=== PATIENT | female | born 1995 | race African-American/Black ===

== ENCOUNTER 2019-04-03 14:49 | Inpatient (IN) ==
[2019-04-03] MEDS ORDERED: miSOPROStoL 200 MCG TABLET VAG PRN (15:20)
[2019-04-03] MEDS ORDERED: BUTORPHANOL 2 MG/ML VIAL IV PRN (15:20)
[2019-04-03] MEDS ORDERED: LIDOCAINE 1% 50 ML VIAL MISC INJ ONE (15:20)
[2019-04-03] MEDS ORDERED: MEPERIDINE 50 MG/1 ML VIAL IV PRN (15:20)
[2019-04-03] MEDS ORDERED: ONDANSETRON 4 MG/2 ML VIAL IV PRN (15:20)
[2019-04-03] MEDS ORDERED: DINOPROSTONE VAG GEL 10 MG SYRINGE VAG ONE (15:26)
[2019-04-03] MEDS: LACTATED RINGERS 1,000 ML IV SCH (15:50)
[2019-04-03 16:03] LABS: Basophils % 0.2 % (0.0-0.8); Eosinophils % 0.3 % (0.00-10.9); Hematocrit 26.9 VOL% (35.7-47.0); Immature Granulocytes Absolute 0.09 #; Lymphocytes # 1.3 10*3/uL (1.4-4.0); Lymphocytes % 14.3 % (21.3-54.2); Mean Corpuscular HGB Conc 29.7 GM/DL (32-36); Mean Corpuscular Volume 72.9 FL (87-102); Mean Platelet Volume 11.5 FL (9.6-12.0); Monocytes % 10.5 % (1.7-12.7); NRBC # 0.03 10*3/uL; Neutrophils % 73.7 % (38.7-73.9); Platelet Count 251 T/CUMM (130-400); Red Blood Count 3.69 MC/CUMM (3.8-5.5); Red Cell Distribution Width 16.4 % (9.3-17.3)
[2019-04-03 16:25] LABS: Alanine Aminotransferase < 9 U/L (13-56); Albumin 2.9 G/DL (3.4-5.0); Alkaline Phosphatase 161 U/L (45-117); Aspartate Amino Transferase 17 U/L (0-37); Blood Urea Nitrogen 5 MG/DL (7-18); Calcium 8.4 MG/DL (8.5-10.1); Estimated Glom Filtration Rate 124 ML/MIN; Glucose 81 MG/DL (74-106); Osmolality,Calculated 270.7 MOS/KG (273-304); Total Protein 7.4 G/DL (6.4-8.3)
[2019-04-04] MEDS ORDERED: OXYTOCIN/LR 20 UNIT/1,000 ML BAG IV SCH (02:00)
[2019-04-04] MEDS: LACTATED RINGERS 1,000 ML IV SCH (02:14)
[2019-04-04] MEDS ORDERED: ePHEDrine 50 MG/ML AMP IV PRN (06:12)
[2019-04-04] MEDS ORDERED: NALOXONE 0.4 MG/ML VIAL IV PRN (06:12)
[2019-04-04] MEDS ORDERED: CITRIC ACID/SODIUM CITRATE 30 ML UDCUP PO ONE (06:12)
[2019-04-04] MEDS ORDERED: FAMOTIDINE 20 MG/2 ML VIAL IV ONE (06:12)
[2019-04-04] MEDS ORDERED: fentaNYL 2 MCG/ROPIV 0.2% EPID 100 ML EPIDURAL SCH (06:30)
[2019-04-04] MEDS ORDERED: LIDOCAINE 1% 50 ML VIAL ONE (07:44)
[2019-04-04] MEDS ORDERED: TRANEXAMIC ACID 1,000 MG/10 ML VIAL ONE (07:45)
[2019-04-04] MEDS ORDERED: miSOPROStoL 200 MCG TABLET ONE (07:45)
[2019-04-04] MEDS ORDERED: CARBOPROST TROMETHAMINE 250 MCG/ML AMP IM ONE (07:45)
[2019-04-04] MEDS ORDERED: METHYLERGONOVINE 0.2 MG/1 ML AMP ONE (07:45)
[2019-04-04] MEDS ORDERED: OXYTOCIN/LR 20 UNIT/1,000 ML BAG IV ONE (07:45)
[2019-04-04 09:32] LABS: Apearance,Urine CLEAR (Clear); Bilirubin,Urine Negative (Negative); Blood, Urine Negative (Negative); Glucose,Urine (UA) Negative (Negative); Ketones,Urine 5 mg/dL (Negative); Mucus,Urine Few /LPF (Occasional); Nitrite,Urine Negative (Negative); Protein,Urine Negative; RBC,Urine 1 /HPF (0-4); Squamous Epithelial Cell,Urine Occasional /HPF (0-10); Urine Color Yellow (Yellow); Urine Specific Gravity 1.014 (1.001-1.035); WBC,Urine <1 /HPF (0-6)
[2019-04-04 10:15] LABS: Cord Arterial Blood HCO3 17.5 MMOL/L
[2019-04-04 10:17] LABS: Cord Venous Blood HCO3 21.2 MMOL/L; Cord Venous Blood PCO2 49.3 MMHG; Cord Venous Blood PO2 28.1 MMHG
[2019-04-04] MEDS ORDERED: oxyCODONE/ACETAMINOPHEN 5-325 MG TABLET PO PRN ×2 (11:00)
[2019-04-04] MEDS ORDERED: ACETAMINOPHEN 325 MG TABLET PO PRN (11:00)
[2019-04-04] MEDS ORDERED: DIPH/TET/ACEL PERT BOOSTER VACCINE 0.5 ML VIAL IM ONE (11:00)
[2019-04-04] MEDS ORDERED: LANOLIN 50% CREAM 0.3 OZ TUBE TOP PRN (11:00)
[2019-04-04] MEDS ORDERED: BENZOCAINE 20%/MENTHOL 0.5% SPRAY 56 GM CAN TOP PRN (11:00)
[2019-04-04] MEDS ORDERED: BISACODYL 10 MG SUPP RECTAL PRN (11:00)
[2019-04-04] MEDS ORDERED: WITCH HAZEL PADS 100/JAR TOP PRN (11:00)
[2019-04-04] MEDS ORDERED: IBUPROFEN 800 MG TABLET PO PRN (11:00)
[2019-04-04] MEDS ORDERED: HYDROCORTISONE 2.5% RECTAL CREAM 30 GM TUBE TOP PRN (11:00)
[2019-04-04] MEDS ORDERED: RHO(D) IMMUNE GLOBULIN 300 MCG SYRINGE IM ONE (11:00)
[2019-04-04] MEDS ORDERED: MEASLES/MUMPS/RUBELLA VACCINE 0.5 ML VIAL SUBCUT ONE (11:00)
[2019-04-04] MEDS: DOCUSATE SODIUM 100 MG CAPSULE PO SCH (21:28)
[2019-04-05 06:43] LABS: Basophils % 0.2 % (0.0-0.8); Eosinophils % 0.1 % (0.00-10.9); Hematocrit 27.8 VOL% (35.7-47.0); Hemoglobin 8.2 GM/DL (12.0-16.0); Immature Granulocytes % 0.7 %; Immature Granulocytes Absolute 0.11 #; Lymphocytes # 1.5 10*3/uL (1.4-4.0); Lymphocytes % 9.9 % (21.3-54.2); Mean Corpuscular HGB Conc 29.5 GM/DL (32-36); Mean Corpuscular Volume 72.8 FL (87-102); Mean Platelet Volume 10.5 FL (9.6-12.0); Monocytes % 9.8 % (1.7-12.7); NRBC # 0.02 10*3/uL; Neutrophils % 79.3 % (38.7-73.9); Platelet Count 248 T/CUMM (130-400); Red Blood Count 3.82 MC/CUMM (3.8-5.5); Red Cell Distribution Width 16.7 % (9.3-17.3); White Blood Count 15.3 T/CUMM (4-12)
[2019-04-05] MEDS: FERROUS SULFATE 325 MG TABLET PO SCH ×2 (09:47→21:41)
[2019-04-05] MEDS: MULTIVITAMIN (PRENATAL) TABLET PO SCH (09:47)
[2019-04-05] MEDS: DOCUSATE SODIUM 100 MG CAPSULE PO SCH ×2 (09:47→21:41)
[2019-04-05] MEDS: LACTATED RINGERS 1,000 ML IV SCH (14:40)
[2019-04-06 08:10] VITALS: BP 119/64
[2019-04-06] MEDS: DOCUSATE SODIUM 100 MG CAPSULE PO SCH (09:24)
[2019-04-06] MEDS: MULTIVITAMIN (PRENATAL) TABLET PO SCH (09:24)
[2019-04-06] MEDS: FERROUS SULFATE 325 MG TABLET PO SCH (09:24)
== END 2019-04-06 11:50 | disposition home or self-care (01) | DRG 560 ==
LOC: N.LDOUT 14:49 → N.LD 14:52 → N.OB 04-04 13:34
PROVIDERS: ADMIT Obstetrics & Gynecology; ATTEND Obstetrics & Gynecology